=== PATIENT | male | born 1955 | race Caucasian/White ===

== ENCOUNTER 2019-04-02 20:07 | Emergency (ER) | payer SELFPAY ==
[~2019-04-02] VITALS: Ht 170.2 cm; Wt 104.3 kg
[2019-04-02 20:10] VITALS: BP 147/0
--- NOTE | 2019-04-02 20:12 | NUR ---
TO LOBBY A/W BED, AMBULATORY
--- NOTE | 2019-04-02 20:41 | NUR ---
PT AMBULATED TO CHAIR E.
[2019-04-02 21:07] VITALS: BP 148/96
--- NOTE | 2019-04-02 21:07 | NUR ---
Patient discharged with v/s stable. Written and verbal after care instructions given and explained. Patient alert, oriented and verbalized understanding of instructions. Ambulatory with steady gait. All questions addressed prior to discharge. ID band removed. Patient advised to follow up with PMD. Rx of NOVOLOG given. Patient educated on indication of medication including possible reaction and side effects. Opportunity to ask questions provided and answered.
== END 2019-04-02 21:08 | disposition home or self-care (01) ==
LOC: MED 20:07
DX: E11.9 Type 2 diabetes mellitus without complications (principal); I10 Essential (primary) hypertension; Z79.4 Long term (current) use of insulin; Z76.0 Encounter for issue of repeat prescription
CPT/HCPCS: 99283